=== PATIENT | female | born 1930 | race Caucasian/White ===

== ENCOUNTER 2018-06-11 05:37 | Emergency (ER) | payer MEDICAID, MEDICARE ==
[2018-06-11] MEDS ORDERED: Adacel (T-DAP) 0.5 ML SYRINGE ONE (06:40)
--- NOTE | 2018-06-11 07:31 | CT ---
CT OF THE BRAIN WITHOUT CONTRAST: INDICATION: History of head injury. COMPARISON: None. FINDINGS: There is a prominent right periorbital and right frontal scalp contusion. There is mild generalized cerebral atrophy. There is mild chronic small-vessel white matter ischemic change. No acute intracr anial hemorrhage, infarct, or hydrocephalus is present. 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 There is partial fusion involving the mastoid air cells bilaterally. The skull appears intact. IMPRESSION: 1. No acute intracranial abnormality. 2. Prominent right frontal scalp and right periorbital soft tissue contusion. 3. Mild generalized cerebral atrophy and mild chronic small-vessel white matter ischemic change. POS: [facility]
--- NOTE | 2018-06-11 07:56 | RAD ---
FOUR VIEWS RIGHT KNEE: COMPARISON: None. HISTORY: Ground level fall with right knee pain. FINDINGS: Four views of the right knee show the patient be status post right knee arthroplasty without perihard goodwin lucency or fracture. No knee effusion is seen. Prepatellar soft tissue swelling is present. IMPRESSION: No evidence of acute osseous abnormality. POS: [facility]
== END 2018-06-11 07:26 | disposition home or self-care (01) ==
LOC: MADERS 05:37
DX: S05.11XA Contusion of eyeball and orbital tissues, right eye, initial encounter (principal); S60.221A Contusion of right hand, initial encounter; S80.01XA Contusion of right knee, initial encounter; K21.9 Gastro-esophageal reflux disease without esophagitis; E78.5 Hyperlipidemia, unspecified; I10 Essential (primary) hypertension; Z79.82 Long term (current) use of aspirin; Z79.899 Other long term (current) drug therapy; W19.XXXA Unspecified fall, initial encounter
CPT/HCPCS: 70450; 90471; 90715